=== PATIENT | female | born 1990 | race African-American/Black ===

== ENCOUNTER 2022-07-02 15:47 | Emergency (ER) | payer OTHER, BC ==
[2022-07-02] MEDS ORDERED: Lidocaine 1% (PF) 30 ML VIAL ONE (16:31)
[2022-07-02] MEDS ORDERED: Ondansetron ODT 4 MG TAB ONE (16:31)
[2022-07-02] MEDS ORDERED: Boostrix 0.5 ML (Tdap) VIAL (>/=7 yrs of age) ONE (16:32)
[2022-07-02] MEDS ORDERED: HYDROcodone/Acetaminophen 10/325 mg Tablet ONE (16:32)
[2022-07-02] MEDS ORDERED: Triple Antibiotic Oint 1 GM Packet ONE (17:19)
== END 2022-07-02 17:25 | disposition home or self-care (01) ==
LOC: CSHERS 15:47
DX: S61.452A Open bite of left hand, initial encounter (principal); G40.909 Epilepsy, unspecified, not intractable, without status epilepticus; Z23 Encounter for immunization; W54.0XXA Bitten by dog, initial encounter
CPT/HCPCS: 12002; 90471; 90715; J2001; Q0162